=== PATIENT | female | born 1965 | race African-American/Black ===

== ENCOUNTER 2023-12-05 10:22 | Day surgery (SDC) | payer OTHER ==
[2023-11-27 14:38] VITALS: BMI 38.7
[2023-12-05] MEDS ORDERED: LIDOCAINE HCL/PF 2% SDV 5ML VIAL ONE (11:40)
[2023-12-05] MEDS ORDERED: PROPOFOL 20 ML ONE (11:50)
[2023-12-05 12:50] VITALS: TEMP 97.4
[2023-12-05 12:52] VITALS: BP 136/88; PULSE 83; RESP 19
== END 2023-12-05 12:57 | disposition home or self-care (01) ==
LOC: FASU-ENDO 10:22
PROVIDERS: ATTEND Internal Medicine Gastroenterology
PROC: 0DB98ZX Excision of Duodenum, Via Natural or Artificial Opening Endoscopic, Diagnostic (ICD-10-PCS; 2023-12-05)
PROC: 0DB78ZX Excision of Stomach, Pylorus, Via Natural or Artificial Opening Endoscopic, Diagnostic (ICD-10-PCS; 2023-12-05)
PROC: 0DB68ZX Excision of Stomach, Via Natural or Artificial Opening Endoscopic, Diagnostic (ICD-10-PCS; 2023-12-05)
PROC: 0DB48ZX Excision of Esophagogastric Junction, Via Natural or Artificial Opening Endoscopic, Diagnostic (ICD-10-PCS; 2023-12-05)
PROC: 0DJD8ZZ Inspection of Lower Intestinal Tract, Via Natural or Artificial Opening Endoscopic (ICD-10-PCS; principal; 2023-12-05 11:41)
DX: Z12.11 Encounter for screening for malignant neoplasm of colon (principal); K64.1 Second degree hemorrhoids; K64.8 Other hemorrhoids; K25.3 Acute gastric ulcer without hemorrhage or perforation; K29.50 Unspecified chronic gastritis without bleeding; K21.00 Gastro-esophageal reflux disease with esophagitis, without bleeding
CPT/HCPCS: 82962; 88305-TC; 88342-TC

== ENCOUNTER 2024-01-30 09:07 | Day surgery (SDC) | payer OTHER ==
[2024-01-22 10:37] VITALS: BMI 38.6
[2024-01-30 09:33] VITALS: BP 170/100; PULSE 72; RESP 16; TEMP 97.1
[2024-01-30] MEDS ORDERED: ONDANSETRON 4 MG/2 ML VIAL ONE (10:08)
[2024-01-30] MEDS ORDERED: GLYCOPYRROLATE 0.2 MG/1 ML VIAL ONE (10:08)
== END 2024-01-30 10:21 | disposition short-term general hospital (02) ==
LOC: FASU-ENDO 09:07
PROVIDERS: ATTEND Internal Medicine Gastroenterology
PROC: 0DJ08ZZ Inspection of Upper Intestinal Tract, Via Natural or Artificial Opening Endoscopic (ICD-10-PCS; principal; 2024-01-30 09:00)
DX: Z53.09 Procedure and treatment not carried out because of other contraindication (principal)

== ENCOUNTER 2024-01-30 10:20 | Emergency (ER) | payer OTHER ==
[2024-01-30 10:49] VITALS: TEMP 97.6; BMI 38.6
[2024-01-30 11:38] VITALS: PULSE 80; RESP 16
[2024-01-30 11:54] VITALS: BP 195/94
== END 2024-01-30 11:54 | disposition home or self-care (01) ==
LOC: FER 10:20
DX: I10 Essential (primary) hypertension (principal)
CPT/HCPCS: 93005; 93010; 99284-25